=== PATIENT | male | born 1980 | race Caucasian/White ===

== ENCOUNTER 2023-08-05 15:42 | Emergency (ER) | payer MEDICAID, SELFPAY ==
[2023-08-05 15:50] VITALS: BP 123/86; PULSE 95; RESP 18; TEMP 37.2; O2SAT 96
--- NOTE | 2023-08-05 17:08 | ED.GENADULT ---
HPI - General Adult General Chief complaint: Extremity Pain/Injury, Lower Stated complaint: foot pain Time Seen by Provider: 08/05/23 16:55 History of Present Illness HPI narrative: Patient is a 42 year white male had low back surgery for right sciatica about 2 years ago. Today he noticed some numbness feeling in his foot and a little bit of discomfort in his thigh and he was concerned this might be recurring. No back pain, no trauma or injury. No bowel or bladder symptoms fever chills or perineal numbness. Related Data Previous Rx's Medication Instructions Recorded celecoxib 200 mg capsule (Celebrex) 200 mg PO DAILY #10 caps 08/05/23 methylprednisolone 4 mg tablets in See Rx Instructions PO .COMPLEX 08/05/23 a dose pack (Medrol (Danish)) #21 ea Allergies Allergy/AdvReac Type Severity Reaction Status Date / Time No Known Drug Allergies Allergy Verified 08/05/23 15:55 Review of Systems Status of ROS: Reports: 6 or more systems reviewed and unremarkable except as noted in History and below Exam Narrative: Exam Narrative: Objective: Vital signs unremarkable and within normal limits He is alert and orient no distress Denies back pain Negative straight leg raise bilaterally, normal strength and symmetric reflexes lower extremities. No swelling or edema the foot or redness. Const: Vital Signs, click to edit/add: Vital Signs - 24 hr 08/05/23 15:50 Temperature 98.9 F Pulse Rate [Pulse Oximeter] 95 Respiratory Rate 18 Blood Pressure [Ri ght Upper Arm] 123/86 Pulse Oximetry 96 Oxygen Delivery Me thod Room Air Course Vital Signs Vital signs: Initial Vital Signs Temperature 98.9 F 08/05/23 15:50 Temperature Source Temporal Artery Scan 08/05/23 15:50 Pulse Rate 95 08/05/23 15:50 Pulse Rhythm Regular 08/05/23 15:50 Respiratory Rate 18 08/05/23 15:50 Blood Pressure 123/86 08/05/23 15:50 Blood Pressure Mean 98 08/05/23 15:50 Blood Pressure Position Sitting 08/05/23 15:50 Pulse Oximetry 96 08/05/23 15:50 Oxygen Delivery Method Room Air 08/05/23 15:50 Vital Signs Temperature 98.9 F 08/05/23 15:50 Pulse Rate 95 08/05/23 15:50 Respiratory Rate 18 08/05/23 15:50 Blood Pressure 123/86 08/05/23 15:50 Pulse Oximetry 96 08/05/23 15:50 Oxygen Delivery Method Room Air 08/05/23 15:50 Temperature 98.9 F 08/05/23 15:50 Pulse Rate 95 08/05/23 15:50 Respiratory Rate 18 08/05/23 15:50 Blood Pressure 123/86 08/05/23 15:50 Pulse Oximetry 96 08/05/23 15:50 Oxygen Delivery Method Room Air 08/05/23 15:50 Medical Decision Making MDM Narrative Medical decision making narrative: 42-year-old male with evidence of mild radiculitis, he has had a history of low back surgery on the right for sciatica. At this point he certainly could have some mild chemical or mechanical inflammation of his nerve, and would recommend we give a trial of Celebrex 200 mg daily for 10 days as well as a Medrol Dosepak. He can start some stretching that he was doing after his prior surgery, could also do some yoga stretching. If he is not improving he should recheck with regular doctor in 5-7 days, certainly return to ED sooner worsening or changes. May need more advanced imaging at some point if his symptoms persist. I think this point is a good chance to resolve his symptoms with medication and some stretching. Discharge Plan Discharge Clinical Impression: Radiculitis Patient Disposition: Home, Self-Care Condition: Stable Additional Instructions: Stretching/yoga, Celebrex and Medrol as prescribed, recheck with regular doctor in 5-7 days if not resolving and consider physical therapy and/or imaging. Return to ED as needed. Activity Level: No strenuous activity Activity Detail: Would recommend off work until Thursday of this week Discharge Diet: Regular Prescriptions: New methylprednisolone [Medrol (Danish)] 4 mg tablets,dose pack See Rx Instructions .ROUTE .COMPLEX Qty: 21 0RF Rx Instructions: orally per package directions celecoxib [Celebrex] 200 mg capsule 200 mg PO DAILY Qty: 10 2RF Stand Alone Forms: [employer] Info Instructions
== END 2023-08-05 17:29 | disposition home or self-care (01) ==
LOC: ED 17:12
PROVIDERS: Emergency Provider Family Medicine
DX: M54.16 Radiculopathy, lumbar region (principal)
CPT/HCPCS: 99283

== ENCOUNTER 2024-04-12 19:43 | Emergency (ER) | payer OTHER, SELFPAY ==
[2024-04-12 19:49] VITALS: BP 151/100; PULSE 84; RESP 16; TEMP 36.2; O2SAT 98; BMI 23.7
--- NOTE | 2024-04-12 20:11 | ED.HA ---
HPI - Headache General Chief Complaint: Headache/Migraine Stated Complaint: migraine Time Seen by Provider: 04/12/24 20:00 History of Present Illness HPI Narrative: This 43-year-old male comes in reporting migraine type headache that came on a few hours prior to arrival. He states that he gets headaches on rare occasion, perhaps every year or so. This 1 seemed more intense but is similar to previous headaches. He does report some sensitivity to light with nausea and vomiting. He does not have any neurologic deficits. Related Data Home Medications ?Medication ?Instructions ?Recorded ?Confirmed venlafaxine 100 mg tablet 150 mg PO DAILY 04/12/24 04/12/24 Previous Rx's ?Medication ?Instructions ?Recorded celecoxib 200 mg capsule (Celebrex) 200 mg PO DAILY #10 caps 08/05/23 methylprednisolone 4 mg tablets in See Rx Instructions PO .COMPLEX 08/05/23 a dose pack (Medrol (Danish)) #21 ea Allergies Allergy/AdvReac Type Severity Reaction Status Date / Time No Known Drug Allergies Allergy Verified 08/05/23 15:55 Review of Systems Status of ROS: Reports: 10 or more systems reviewed and unremarkable except as noted in History and below Narrative: Constitutional: No fevers, no weight gain or loss. Eyes: No discharge. No vision changes. HENT: No congestion, no sore throat, no ear pain. Cardiovascular: No chest pain, no palpitations. Respiratory: No shortness of breath, no wheezes, no cough. Gastrointestinal: No abdominal pain, no diarrhea. Genitourinary: No dysuria, no hematuria. Musculoskeletal: Normal range of motion. Skin: No rashes, no pruritis. Neurological: No dizziness, weakness, sensory change, speech change. Endo/Heme/Allergies: No bruising or bleeding. No polydipsia. Pysch: no suicidality, no anxiety, no insomnia. All other systems reviewed and are negative. [facility] Social History Smoking Status: Never smoker Do you use any of these nicotine containing products: None Second hand tobacco smoke exposure: No How often do you have a drink containing alcohol: never AUDIT-C Alcohol total score: 0 Non-prescribed substance use: former substance user service: No Exam Narrative: Exam Narrative: Constitutional: Well-developed, well-nourished, no acute distress. HEENT: Normocephalic, atraumatic. Neck: Normal range of motion. Nontender. Supple. Heart: Intact distal pulses. Lungs: No chest discomfort. No wheezes, rhonchi, or rales. Abdomen: Nontender. Back: Normal range of motion. Extremities: Normal range of motion. No injury. Skin: Intact. No rash. Warm. No erythema or pallor. Neurologic: No altered sensation. No weakness. Alert and oriented. Psychiatric: No suicidality. No anxiety or depression. No insomnia. Nursing notes and vitals signs are reviewed. Const: Vital Signs, click to edit/add: Vital Signs - 24 hr 04/12/24 19:49 Temperature 97.2 F L Pulse Rate [Pulse Oximeter] 84 Respiratory Rate 16 Blood Pressure [Ri ght Upper Arm] 151/100 H Pulse Oximetry 98 Oxygen Delivery Me thod Room Air Course Vital Signs Vital signs: Initial Vital Signs Temperature 97.2 F L 04/12/24 19:49 Temperature Source Temporal Artery Scan 04/12/24 19:49 Pulse Rate 84 04/12/24 19:49 Respiratory Rate 16 04/12/24 19:49 Blood Pressure 151/100 H 04/12/24 19:49 Blood Pressure Mean 117 H 04/12/24 19:49 Blood Pressure Position Supine 04/12/24 19:49 Pulse Oximetry 98 04/12/24 19:49 Oxygen Delivery Method Room Air 04/12/24 19:49 Vital Signs Temperature 97.2 F L 04/12/24 19:49 Pulse Rate 84 04/12/24 19:49 Respiratory Rate 16 04/12/24 19:49 Blood Pressure 151/100 H 04/12/24 19:49 Pulse Oximetry 98 04/12/24 19:49 Oxygen Delivery Method Room Air 04/12/24 19:49 Temperature 97.2 F L 04/12/24 19:49 Pulse Rate 84 04/12/24 19:49 Respiratory Rate 16 04/12/24 19:49 Blood Pressure 151/100 H 04/12/24 19:49 Pulse Oximetry 98 04/12/24 19:49 Oxygen Delivery Method Room Air 04/12/24 19:49 Medications Administered Medications: Generic Name Dose Route Start Last Admin Trade Name Freq PRN Reason Stop Dose Admin Sodium Chloride 1,000 mls @ 1,000 mls/hr 04/12/24 20:15 04/12/24 20:15 0.9 % Sodium Chloride 1000 Ml IV 04/12/24 21:14 1,000 mls/hr .Q1H ESCOBAR Administration Discontinued Medications Generic Name Dose Route Start Last Admin Trade Name Bessie PRN Reason Stop Dose Admin Dexamethasone 10 mg 04/12/24 20:09 04/12/24 20:29 Dexamethasone 10 Mg/Ml Inj PO 04/12/24 20:10 10 mg ONCE ONE Administration Diphenhydramine HCl 50 mg 04/12/24 20:04/12/24 20:30 Diphenhydramine 50 Mg/Ml Inj IVP 04/12/24 20:10 50 mg ONCE ONE Administration Ketorolac Tromethamine 30 mg 04/12/24 20:09 04/12/24 20:27 Ketorolac 30 Mg/Ml Inj IVP 04/12/24 20:10 30 mg ONCE ONE Administration Ondansetron HCl 4 mg 04/12/24 20:09 04/12/24 20:26 Ondansetron 2 Mg/Ml Inj IVP 04/12/24 20:10 4 mg ONCE ONE Administration MDM - Headache MDM Narrative Medical decision making narrative: This patient comes in with report of migraine headache and has have some associated nausea and vomiting with light sensitivity. He is not showing any sign of neurologic deficit or any symptoms that would indicate need for further workup beyond treating his symptoms. An IV is established with the patient received a L of normal saline, Toradol 30 mg, Zofran 4 mg, Benadryl 50 mg, and dexamethasone 10 mg. These medicines brought sufficient relief to his headache. He is able to be discharged home. Discharge Plan Discharge Clinical Impression: Migraine Patient Disposition: Home w/ Parent or Adult Condition: Improved Additional Instructions: Use [id number] medicines as needed and directed. Follow up with MD return if worsening. Prescriptions: No Action venlafaxine 100 mg tablet 150 mg PO DAILY methylprednisolone [Medrol (Danish)] 4 mg tablets,dose pack See Rx Instructions .ROUTE .COMPLEX Qty: 21 0RF Rx Instructions: orally per package directions celecoxib [Celebrex] 200 mg capsule 200 mg PO DAILY Qty: 10 2RF Follow Up/Referrals: Provider,Not a Local [Primary Care Provider] - Stand Alone Forms: [employer] Info Instructions
[2024-04-12] MEDS: 0.9 % SODIUM CHLORIDE 1000 ml 1,000 ML IV (20:15)
[2024-04-12] MEDS: ONDANSETRON 2 MG/ML inj 4 MG IVP (20:26)
[2024-04-12] MEDS: KETOROLAC 30 MG/ML inj IVP (20:27)
[2024-04-12] MEDS: dexAMETHasone 10 MG/ML inj PO (20:29)
[2024-04-12] MEDS: diphenhydrAMINE 50 MG/ML inj IVP (20:30)
== END 2024-04-12 21:32 | disposition home or self-care (01) ==
PROVIDERS: Emergency Provider Emergency Medicine Emergency Medical Services
DX: G43.909 Migraine, unspecified, not intractable, without status migrainosus (principal)
CPT/HCPCS: 96361; 96374; 96375; 99284; J1100; J1200; J1885; J2405; J7030